=== PATIENT | male | born 1990 | race Caucasian/White ===

== ENCOUNTER 2020-05-28 14:04 | Emergency (ER) | payer BC, SELFPAY ==
--- NOTE | ~2020-05-28 | XR_ITS ---
EXAMINATION: XR ankle LT min 3V DATE: 05/28/2020 14:24 INDICATION: Left ankle pain TECHNIQUE: Anteroposterior, lateral, mortise, and additional oblique view of the ankle were obtained. COMPARISON: None. FINDINGS: There is no fracture, dislocation, or subluxation. The bones, soft tissues, and joint space s are normal. IMPRESSION: 1. No acute osseous abnormality. Reviewed, dictated and finalized at location A. BUSINESS ANALYST
[2020-05-28 14:12] VITALS: BP 157/85; PULSE 96; RESP 16; TEMP 37.4; O2SAT 100
[2020-05-28 14:20] VITALS: BP 157/85; PULSE 96; RESP 16; TEMP 37.4; O2SAT 100
--- NOTE | 2020-05-28 14:20 | ED.LOWEXIN ---
HPI - Extremity Injury (Lower) General Chief Complaint: Extremity Injury, Lower Stated Complaint: left ankle injury Time Seen by Provider: 05/28/20 14:20 Source: patient and RN notes reviewed History of Present Illness HPI Narrative: Patient is a 29-year-old male who presents the urgent care with complaints of left ankle pain and swelling. Patient states that he tripped and fell off his at home treadmill prior to arrival. Patient states that he is used Tylenol, ibuprofen, ice and an old ankle wrap from a sprain. Patient denies hitting his head or any other injuries from the fall. No other acute complaints. No acute distress noted. Patient aware of the plan of care. Some parts of this dictation were generated by voice recognition software and may contain typographical and/or grammatical inaccuracies. Related Data Home Medications Medication Instructions Recorded Confirmed No Home Medications 05/28/20 05/28/20 Allergies Allergy/AdvReac Type Severity Reaction Status Date / Time loracarbef [From Lorabid] Allergy Mild Unknown Verified 05/28/20 14:10 Review of Systems Review of Systems: Narrative: CONSTITUTIONAL: Denies fever, chills, or sweats. EYES: Denies visual changes, redness, or discharge. ENT: Denies rhinorrhea, congestion, sore throat, or otalgia. CARDIOVASCULAR: Denies chest pain, palpitations, or edema. RESPIRATORY: Denies cough or dyspnea. GASTROINTESTINAL: Denies abdominal pain, nausea, vomiting, or diarrhea. GENITOURINARY: Denies dysuria or hematuria. SKIN: Denies rash or itching. MUSCULOSKELETAL: Reports of left ankle pain and swelling NEUROLOGIC: Denies headache, numbness, or weakness. All other systems reviewed are negative, except as documented in HPI. [facility] Past Medical History Medical History (Updated 05/28/20 @ 14:45 by ANITA Marshall) BMI 32.0-32.9,adult Surgical History Surgical History (Updated 03/29/20 @ 13:49 by Ángela Maya) History of shoulder surgery History of tonsillectomy and adenoidectomy Family History Family History (Updated 03/29/20 @ 13:50 by Ángela Maya) Other Cerebrovascular accident Hypertension Social History Social History (Updated 03/29/20 @ 13:50 by Ángela Maya) Smoking status: Never smoker Alcohol intake: current Comments At the time of my signature, I reviewed and agree with the nursing past medical, surgical, social, and family history. There is no relevant family history pertinent to the patient complaint. Exam Narrative: Exam Narrative: GENERAL: This is a well-nourished, well-developed patient, in no apparent distress. HEAD: normocephalic, atraumatic. EYES: PERRL. Sclera clear/white. Vision is grossly intact. EARS: External ears normal NOSE: External nose normal with no obvious nasal discharge, nares without redness, no rhinorrhea. THROAT: Mucous membranes moist NECK: Neck supple SKIN: warm, intact with no suspicious lesions or rash, good texture and turgor. NEURO: awake, alert, and oriented to person, place and time. There were no obvious focal neurologic abnormalities. EXTREMITIES: Mild to moderate left lateral malleolus edema and mild ecchymosis with moderate tenderness. Range of motion within normal limits however exacerbates pain. Positive strong left pedal pulse with capillary refill less than 2 seconds. No obvious deformity. Course Vital Signs Vital signs: Vital Signs Temperature 99.4 F 05/28/20 14:12 Pulse Rate 96 05/28/20 14:12 Respiratory Rate 16 05/28/20 14:12 Blood Pressure 157/85 H 05/28/20 14:12 Pulse Oximetry 100 05/28/20 14:12 Temperature 99.4 F 05/28/20 14:20 Pulse Rate 96 05/28/20 14:20 Respiratory Rate 16 05/28/20 14:20 Blood Pressure 157/85 H 05/28/20 14:20 Pulse Oximetry 100 05/28/20 14:20 Reviewed-patient is informed that they may have pre-hypertension or hypertension based on a blood pressure reading in the department. I recommend the patient call the prim
== END 2020-05-28 14:45 | disposition home or self-care (01) ==
PROVIDERS: Emergency Provider Nurse Practitioner Family
DX: S93.402A Sprain of unspecified ligament of left ankle, initial encounter (principal); S96.912A Strain of unspecified muscle and tendon at ankle and foot level, left foot, initial encounter; W19.XXXA Unspecified fall, initial encounter; Y93.A1 Activity, exercise machines primarily for cardiorespiratory conditioning
CPT/HCPCS: 73610; 99213; G0463

== ENCOUNTER 2021-06-26 07:31 | Outpatient (CLI) | payer BC, SELFPAY ==
--- NOTE | 2021-06-26 07:52 | ECHO_ITS ---
Patient Info Name: Ponce Holguin Age: 31 years : 1990 Gender: Male Ht: 72 in Wt: 260 lbs BSA: 2.49 m2 HR: 63 bpm BP: 144 / 102 mmHg Technical Quality: Good Exam Date: 06/26/2021 8:03 AM Exam Location: [facility] Patient Status: Outpatient Admit Date: 06/26/2021 Staff Ordering Physician: Omkar Zarate DO Forensic Toxicologist: Ivis Gonzalez RDCS Attending Provider: Omkar Zarate DO Referring Physician: Elliot ORDOÑEZ; Exam Type: CA echo doppler color flow Study Info Indications R07.9 - Chest pain, unspecified Complete two-dimensional, color flow and Doppler transthoracic echocardiogram is performed. Summary 1. Complete two-dimensional, color flow and Doppler transthoracic echocardiogram is performed. 2. Left ventricular chamber dimension is normal. 3. Left ventricular systolic function is normal, estimated at 60-65%. 4. The left ventricular diastolic function is normal. 5. E/e' 4 is not elevated. 6. Global longitudinal strain is normal at -17.1%. 7. There is trace tricuspid valve regurgitation. 8. No pulmonary hypertension, estimated pulmonary arterial systolic pressure is 32 mmHg. Left Ventricle E/e' 4 is not elevated. Global longitudinal strain is normal at -17.1%. Left ventricular chamber dimension is normal. Left ventricular systolic function is normal, estimated at 60-65%. The left ventricular diastolic function is normal. Right Ventricle Right ventricular systolic function is normal and with normal TAPSE 2.1 cm. Right ventricular chamber dimension is normal. Left Atria Left atrial chamber dimension is normal. Right Atria Right atrial chamber dimension is normal. Aortic Valve The aortic valve is trileaflet. There is no aortic valve stenosis. There is no aortic valve regurgitation. Pulmonic Valve There is no pulmonic regurgitation. Mitral Valve There is no mitral valve stenosis. There is no mitral valve regurgitation. Tricuspid Valve There is trace tricuspid valve regurgitation. No pulmonary hypertension, estimated pulmonary arterial systolic pressure is 32 mmHg. Pericardium/Pleural There is no pericardial effusion. Inferior Vena Cava Normal inferior vena cava with >50% collapse upon inspiration consistent with normal right atrial pressure, 5 mmHg. Aorta The aortic root size at the sinus of Valsalva is normal. Left Ventricular Outflow Tract Name Value Normal LVOT 2D LVOT Diameter 2.3 cm LVOT Doppler LVOT Peak Gradient 2 mmHg LVOT Mean Gradient 1 mmHg LVOT VTI 16 cm LVOT VTI/AV VTI Ratio 0.9 LVOT Stroke Volume 65 ml LVOT CO 4.0 l/min LVOT CI 1.6 l/min/m2 Pulmonic Valve Name Value Normal RVOT Doppler
== END 2021-06-26 07:32 | disposition home or self-care (01) ==
LOC: ANHCARD 07:32
PROVIDERS: Visit Provider Internal Medicine Cardiovascular Disease
DX: R07.9 Chest pain, unspecified (principal)
CPT/HCPCS: 93306

== ENCOUNTER 2021-07-23 09:08 | Outpatient (CLI) | payer BC, SELFPAY ==
--- NOTE | 2021-07-23 09:21 | EST_ITS ---
Patient Info Name: Ponce Holguin Age: 31 years : 1990 Gender: Male Ht: 72 in Wt: 250 lbs BSA: 2.44 m2 HR: 85 bpm BP: 147 / 72 mmHg Heart Rhythm: Sinus Rhythm Exam Date: 07/23/2021 9:31 AM Exam Location: [facility] Stress Patient Status: Outpatient Admit Date: 07/23/2021 Staff Ordering Physician: Omkar Zarate DO Attending Provider: Omkar Zarate DO Exercise Technologist: Paris Sims CT Exercise Physician: Omkar Zarate DO Exam Type: CA stress test treadmill Study Info Indications R07.9 - Chest pain, unspecified A treadmill exercise stress test was performed. Summary 1. 1. Negative Romain exercise stress test for ischemic ST changes by ECG criteria. 2. 2. Good functional capacity, achieving 12 METs of workload. 3. 3. Baseline hypertension with hypertensive response to exercise. 4. 4. Appropriate HR response to exercise. 5. 5. Appropriate HR recovery at 1 minute post exercise. 6. 6. No imaging with stress testing. 7. 7. Patient informed of the above results. Protocol: Romain Stress ECG Details Stage: REST Duration (min): 1 min : 8 sec Speed (mph): 0.0 Grade (%): 0 HR (bpm): 82 SBP (mmHg): --- DBP (mmHg): --- METS: --- Stage: REST Duration (min): 20 min : 34 sec Speed (mph): 0.0 Grade (%): 0 HR (bpm): 78 SBP (mmHg): --- DBP (mmHg): --- METS: --- Stage: STAGE 1 Duration (min): 1 min : 0 sec Speed (mph): 1.7 Grade (%): 10 HR (bpm): 114 SBP (mmHg): --- DBP (mmHg): --- METS: --- Stage: STAGE 1 Duration (min): 2 min : 0 sec Speed (mph): 1.7 Grade (%): 10 HR (bpm): 114 SBP (mmHg): --- DBP (mmHg): --- METS: --- Stage: STAGE 1 Duration (min): 3 min : 0 sec Speed (mph): 1.7 Grade (%): 10 HR (bpm): 110 SBP (mmHg): 188 DBP (mmHg): 74 METS: --- Stage: STAGE 2 Duration (min): 1 min : 0 sec Speed (mph): 2.5 Grade (%): 12 HR (bpm): 129 SBP (mmHg): 188 DBP (mmHg): 74 METS: --- Stage: STAGE 2 Duration (min): 2 min : 0 sec Speed (mph): 2.5 Grade (%): 12 HR (bpm): 133 SBP (mmHg): 188 DBP (mmHg): 67 METS: --- Stage: STAGE 2 Duration (min): 3 min : 0 sec Speed (mph): 2.5 Grade (%): 12 HR (bpm): 136 SBP (mmHg): 188 DBP (mmHg): 67 METS: --- Stage: STAGE 3 Duration (min): 1 min : 0 sec Speed (mph): 3.4 Grade (%): 14 HR (bpm): 155 SBP (mmHg): 185 DBP (mmHg): 76 METS: --- Stage: STAGE 3 Duration (min): 2 min : 0 sec Speed (mph): 3.4 Grade (%): 14 HR (bpm): 161 SBP (mmHg): 185 DBP (mmHg): 76 METS: --- Stage: STAGE 3 Duration (min): 3 min : 0 sec Speed (mph): 3.4 Grade (%): 14 HR (bpm): 164 SBP (mmHg): 191 DBP (mmHg): 73 METS: --- Stage: STAGE 4 Duration (min): 1 min : 0 sec Speed (mph): 4.2 Grade (%): 16 HR (bpm): 173 SBP (mmHg): 191
== END 2021-07-23 09:09 | disposition home or self-care (01) ==
LOC: ANHCARD 09:10
PROVIDERS: PCP Physician Assistant Medical; Visit Provider Internal Medicine Cardiovascular Disease
DX: R07.9 Chest pain, unspecified (principal)
CPT/HCPCS: 93017